=== PATIENT | male | born 1955 | race Caucasian/White ===

== ENCOUNTER 2019-01-20 10:39 | Emergency (ER) | payer MEDICARE, OTHER ==
[~2019-01-20] VITALS: Ht 177.8 cm; Wt 99.8 kg
[~2019-01-20 10:39] MED LIST: ATEN50; ATOR20; Advair Hfa 230-12 GM; Budeprion Xl300 MG; COLCHICINE0.6 MG; Doxycycline Hyc20 MG; LISI20; METF500; PRED10
== END 2019-01-20 13:17 | disposition home or self-care (01) ==
LOC: ER 10:39
DX: S61.211A Laceration without foreign body of left index finger without damage to nail, initial encounter (principal); I10 Essential (primary) hypertension; Z88.0 Allergy status to penicillin; Z79.899 Other long term (current) drug therapy; X58.XXXA Exposure to other specified factors, initial encounter
CPT/HCPCS: 12001; 73140; 90471; 90714; 99283-25

== ENCOUNTER 2019-02-09 12:50 | Day surgery (SDC) | payer MEDICARE, OTHER ==
[~2019-02-09] VITALS: Ht 177.8 cm; Wt 98.4 kg
== END 2019-02-09 14:57 | disposition home or self-care (01) ==
LOC: ORSCSDS 12:50
PROVIDERS: Internal Medicine Gastroenterology
PROC: 0DBM8ZX Excision of Descending Colon, Via Natural or Artificial Opening Endoscopic, Diagnostic (ICD-10-PCS; principal; 2019-02-09 14:15)
PROC: 0DBK8ZX Excision of Ascending Colon, Via Natural or Artificial Opening Endoscopic, Diagnostic (ICD-10-PCS; principal; 2019-02-09 14:15)
DX: Z12.11 Encounter for screening for malignant neoplasm of colon (principal); Z86.010 Personal history of colon polyps; D12.2 Benign neoplasm of ascending colon; D12.4 Benign neoplasm of descending colon; K64.8 Other hemorrhoids; I10 Essential (primary) hypertension; E11.9 Type 2 diabetes mellitus without complications; E66.9 Obesity, unspecified; Z68.32 Body mass index [BMI] 32.0-32.9, adult; Z79.84 Long term (current) use of oral hypoglycemic drugs; Z79.899 Other long term (current) drug therapy
CPT/HCPCS: 82947; 88305; J2704; J7120

== ENCOUNTER 2020-05-17 15:17 | Inpatient (IN) | payer MEDICARE, OTHER ==
[~2020-05-17] VITALS: Ht 180.3 cm; Wt 90.5 kg
[2020-05-17 15:49] LABS: BASOPHILS ABSOLUTE AUTO 0.02 K/mm3 (0.00-0.23); BASOPHILS PERCENT AUTO 0 % (0-2); EOSINOPHILS PERCENT AUTO 0 % (0-6); Hematocrit 38.1 % (37.0-53.0); Hemoglobin 12.9 g/dL (13.5-17.5); IMMATURE GRAN ABSOLUTE AUTO 0.09 K/mm3 (0.00-0.10); IMMATURE GRAN PERCENT AUTO 1 % (0-1); LYMPHOCYTES PERCENT AUTO 5 % (21-46); MONOCYTES ABSOLUTE AUTO 1.03 K/mm3 (0.16-1.47); MONOCYTES PERCENT AUTO 6 % (4-13); Mean Corpuscular HGB 31.5 pg (26.0-34.0); Mean Corpuscular HGB Conc 33.9 g/dL (31.5-36.5); Mean Corpuscular Volume 93 fL (80-100); Mean Platelet Volume 11.2 fL (9.1-12.4); NEUTROPHILS ABSOLUTE AUTO 14.63 K/mm3 (1.96-9.15); NEUTROPHILS PERCENT AUTO 88 % (41-73); Platelet Count 285 K/mm3 (150-400); RDW Coefficient Variation 12.8 % (11.7-14.2); RDW Standard Deviation 43.1 fL (35.1-46.3); White Blood Cell Count 16.57 K/mm3 (4.00-11.30)
[2020-05-17 15:51] LABS: Source, Urine Voided
[2020-05-17 16:05] LABS: Ethanol (Alcohol), Blood, Med <3 mg/dL
[2020-05-17 16:08] LABS: Appearance, Urine Clear (Clear); Bilirubin, Urine Neg (Neg); Blood, Urine 4+ (Neg); Color, Urine Yellow (P-Yellow); Glucose Qualitative, Urine 4+ (Neg); Ketones, Urine 3+ (Neg); Leukocyte Esterase, Urine Neg (Neg); Nitrite, Urine Neg (Neg); Protein, Urine 2+ (Neg); Urobilinogen, Urine NORM (Normal)
[2020-05-17 16:20] LABS: U Amphetamine Screen Not Detected; U Barbituate Screen Not Detected; U Benzodiazapine Screen Not Detected; U Buprenorphine Screen Not Detected; U Cannabinoids Screen Not Detected; U Cocaine Screen Not Detected; U Methadone Screen Not Detected; U Methamphetamine Screen Not Detected; U Opiates Screen Not Detected; U Oxycodone Screen Not Detected; U Phencyclidine Screen Not Detected; U Propoxyphene Screen Not Detected
[2020-05-17 16:26] LABS: International Normalized Ratio 1.02; Prothrombin Time Results 10.9 Sec (9.7-11.5)
[2020-05-17 16:29] LABS: Bacteria Few /hpf; Granular Casts 0-2 /lpf (0); Hyaline Casts 0-2 /lpf (0-2); Squamous Epithelial Cells Few /hpf (Few); White Blood Cells, Urine 0-2 /hpf (0-5)
[2020-05-17 16:46] LABS: Alanine Aminotransfer (ALT/SGP 39 U/L (12-78); Albumin, Blood 3.6 g/dL (3.4-5.0); Albumin/Globulin Ratio 0.9 (0.8-1.8); Alk Phos 164 U/L (50-136); Anion Gap 28 mmol/L (6-16); Aspartate Aminotrans (AST/SGOT 20 U/L (12-37); Bilirubin, Total 0.9 mg/dL (0.1-1.0); Blood Urea Nitrogen 79 mg/dL (8-24); Bun/Creatinine Ratio 41.4 (12.0-20.0); CO2, Blood 10 mmol/L (21-32); Chloride, Blood 81 mmol/L (98-108); Creatinine, Blood 1.91 mg/dL (0.60-1.20); Globulin, Blood 3.8 g/dL (2.2-4.0); Glomerular Filtration Rate 38 (60-); Glucose, Blood 1027 mg/dL (70-99); Potassium, Blood 5.9 mmol/L (3.5-5.5); Sodium, Blood 119 mmol/L (136-145); Total Protein, Blood 7.4 g/dL (6.4-8.2)
[2020-05-17] MEDS ORDERED: FOSAMAX70 MG PO (17:57)
[2020-05-17] MEDS ORDERED: BUDESONIDE PO (17:57)
[2020-05-17] MEDS ORDERED: ATEN100 PO (17:58)
[2020-05-17] MEDS ORDERED: ALLOPURINOL100 M1 PO (17:58)
[2020-05-17] MEDS ORDERED: METFORMIN HCL500 M3 PO (17:58)
[2020-05-17] MEDS ORDERED: LIPITOR80 MG PO (17:59)
[2020-05-17] MEDS ORDERED: BUPROPION XL150 M1 PO (17:59)
[2020-05-17] MEDS ORDERED: MONT10T PO (17:59)
--- NOTE | 2020-05-17 20:30 | NUR ---
ADMISSION NOTE RECEIVED HAND OFF FROM Rony LAURENT RN USING SBAR. TRANSPORTED TO ROOM ICU 14 VIA STRETCHER. TRANSFERED TO BED WITH FULL STAFF ASSISTANCE, TOLERATED WELL. ORIENTED TO SELF ONLY, ATTEMPTED TO ORIENT TO ROOM, CALL SYSTEM, AND POC, PT UNABLE TO COMPREHEND. WILL RENINFORCE NEEDED THROUGHT SHIFT. ER STATED THAT THEY HAD SPOKEN TO HIS WHO IS A PT ON MEDICAL FLOOR AND THAT SHE HAD GIVEN THEM HIS PAST MEDICAL HISTORY AND VERIFIED HIS MEDICATIONS. RESTING WITH EYES CLOSED OFF AND ON, WILL WAKE SUDDENLY LOOKING STARTLED. RESPIRATIONS EVEN AND UNLABORED ON ROOM AIR. LUNG SOUNDS CLEAR BILATERALLY. ABDOMEN SOFT AND NONDISTEND. BOWEL SOUNDS PRESENT IN ALL QUADS. CONTINENT OF BOWEL AND BLADDER, ABLE TO USE URINAL WITH ASSISTANCE. CBG'S IN PROGRESS WITH INSULIN GTT AT 10.9UNITS/HR STARTED IN ER. ALSO INFUSING NS WO, WILL START NS AT 200ML/HR PER MD ORDERS TO LEFT WRIST 20G PIV. RIGHT AC SL PIV IS FLUSHING WITH EASE. ADMISSION ASSESSMENT IN PROGRESS. SAFETY MEASURES IN PLACE. WILL CONTINUE TO MONITOR.
[2020-05-17 21:02] LABS: Bun/Creatinine Ratio 45.4 (12.0-20.0); Calcium, Blood 8.3 mg/dL (8.5-10.1); Creatinine, Blood 1.63 mg/dL (0.60-1.20); Potassium, Blood 4.5 mmol/L (3.5-5.5)
--- NOTE | 2020-05-17 21:12 | NUR ---
CALL RECEIVED FROM RUTH PT'S WHO IS ALSO CURRENTLY A PT IN THE HOSPITAL. UPDATE GIVEN ON CURRENT CONDITION AND CHANGES NOTED. VOICES UNDERSTANDING. REQUESTED THAT SHE RECEIVE A CALL IF PT HAS ANY CHANGES, NURSING VERIFIED TELEPHONE NUMBER AND REASSURED HER THAT A CALL WOULD BE PLACED. SAFETY MEASURES IN PLACE. WILL CONTINUE TO MONITOR.
--- NOTE | 2020-05-18 | NUR ---
EMILY VEST AND BILATERAL SOFT WRIST RESTRAINTS PLACED DUE TO IMPULSITIVITY, ATTEMPTING TO GET OOB, PULLING ON LINES AND IV'S, INTURRPUTION OF TREATMENT AND CARE. SAFETY MEASURES IN PLACE. WILL CONTINUE TO MONITOR.
[2020-05-18 01:29] LABS: Bun/Creatinine Ratio 48.5 (12.0-20.0); Calcium, Blood 7.9 mg/dL (8.5-10.1); Creatinine, Blood 1.32 mg/dL (0.60-1.20); Potassium, Blood 4.3 mmol/L (3.5-5.5)
--- NOTE | 2020-05-18 01:30 | NUR ---
PEREZ CATH PLACED PER MD ORDER DUE TO URINARY RETENTION USING STERILE TECHNIQUE. CONCENTRATE YELLOW URINE WITH A STRONG ODOR NOTED, SAMPLE SENT TO LAB. SAFETY MEASURES IN PLACE. WILL CONTINUE TO MONITOR.
[2020-05-18 01:41] LABS: Source, Urine Catheter
[2020-05-18 01:45] LABS: Bilirubin, Urine Neg (Neg); Blood, Urine 5+ (Neg); Glucose Qualitative, Urine 4+ (Neg); Ketones, Urine 4+ (Neg); Leukocyte Esterase, Urine Neg (Neg); Nitrite, Urine Neg (Neg); Protein, Urine 2+ (Neg); Urobilinogen, Urine NORM (Normal)
[2020-05-18 01:50] LABS: Appearance, Urine Hazy (Clear); Color, Urine Yellow (P-Yellow)
[2020-05-18 01:51] LABS: Amorphous Light (0-Heavy); Bacteria Rare /hpf; Granular Casts 0-2 /lpf (0); Squamous Epithelial Cells Rare /hpf (Few); White Blood Cells, Urine 0-2 /hpf (0-5)
--- NOTE | 2020-05-18 04:15 | NUR ---
SPOKE TO PT'S AND UPDATED HER ON HIS STATUS. SHE STATED THAT HIS BASELINE WAS WITHOUT TREMORS AND CONFUSION. STATED THAT HSE WANTED TO COME AND SEE HIM. SHE ASKED ABOUT VISITATION POLICY. NURSING STATED THAT IT WOULD BE VERIFIED WITH CHARGE NURSE AND SHE WOULD BE ADVISED. CALL PLACED TO Tyrel SANTOS RN AND HE WAS UPDATED ON THE SITUATION. HE STATED THAT HE WOULD INFORME HER OF FINDINGS AND MAKE SURE ARRANGEMENT WERE MADE. SAFETY MEASURES IN PLACE. WILL CONTINUE TO MONITOR.
--- NOTE | 2020-05-18 05:44 | NUR ---
SHIFT SUMMARY LYING SEMI FOWLERS WITH EYES CLOSED. HE IS CONFUSED AND VERY IMPULSIVE. CBG'S CONTINUE, BGL HAD REMAINED OVER 200. REMAINS IN 4 POINT SOFT RESTRAINTS AND EMILY VEST DUE TO CONFUSION, IMPULSIVENESS, AND TRYING TO REMOVE IV'S AND TREATMENTS. SAFETY MEASURES IN PLACE. WILL CONTINUE TO MONITOR AND GIVE HAND OFF TO ONCOMING SHIFT USING SBAR.
[2020-05-18 06:03] LABS: BASOPHILS ABSOLUTE AUTO 0.01 K/mm3 (0.00-0.23); BASOPHILS PERCENT AUTO 0 % (0-2); EOSINOPHILS ABSOLUTE AUTO 0.02 K/mm3 (0.00-0.68); EOSINOPHILS PERCENT AUTO 0 % (0-6); Hematocrit 27.8 % (37.0-53.0); Hemoglobin 9.8 g/dL (13.5-17.5); IMMATURE GRAN ABSOLUTE AUTO 0.02 K/mm3 (0.00-0.10); IMMATURE GRAN PERCENT AUTO 0 % (0-1); LYMPHOCYTES ABSOLUTE AUTO 0.76 K/mm3 (0.84-5.20); LYMPHOCYTES PERCENT AUTO 9 % (21-46); MONOCYTES PERCENT AUTO 9 % (4-13); Mean Corpuscular HGB Conc 35.3 g/dL (31.5-36.5); Mean Platelet Volume 10.1 fL (9.1-12.4); NEUTROPHILS ABSOLUTE AUTO 6.86 K/mm3 (1.96-9.15); NEUTROPHILS PERCENT AUTO 81 % (41-73); Platelet Count 191 K/mm3 (150-400); RDW Coefficient Variation 12.5 % (11.7-14.2); RDW Standard Deviation 40.1 fL (35.1-46.3); Red Blood Cell Count 3.16 M/mm3 (4.30-5.90); White Blood Cell Count 8.47 K/mm3 (4.00-11.30)
[2020-05-18 06:04] LABS: Mean Corpuscular Volume 88 fL (80-100)
[2020-05-18 06:20] LABS: Anion Gap 11 mmol/L (6-16); Blood Urea Nitrogen 59 mg/dL (8-24); Bun/Creatinine Ratio 53.2 (12.0-20.0); CO2, Blood 20 mmol/L (21-32); Calcium, Blood 7.8 mg/dL (8.5-10.1); Chloride, Blood 112 mmol/L (98-108); Creatinine, Blood 1.11 mg/dL (0.60-1.20); Glomerular Filtration Rate >60 (60-); Glucose, Blood 217 mg/dL (70-99); Potassium, Blood 3.9 mmol/L (3.5-5.5); Sodium, Blood 143 mmol/L (136-145)
--- NOTE | 2020-05-18 10:14 | NUR ---
[place] of Care: Care assumed at 0700hr. Patient sleeping, but easily roused to verbal stimuli. Follows simple commands (i.e. assisted with turns), but otherwise confused and unable to follow directions. Responds to his name, but only occasionally says "yeah", or laughs when asked questions. Appears calm and comfortable while sleeping, but frequently wakes and becomes restless. Soft wrist to extremities x4, and doris vest in place. When awake, patient continually attempts to pull at lines, tubes, cords, and climb out of bed. Unable to re-direct patient. At approx 0930hr, patient able to get left hand free from restraint and pulled out his root catheter. Small amount of conrad blood noted to attends, but not actively bleeding. Will continue to monitor void status, and bladder scan if indicated, will avoid replacing root cath in concern for causing further trauma to urethra. Call placed to Dr. Aguilar and informed him of patient's behaviors and removal of root cath. Received order for Haldol IV prn, x1 dose given, will monitor for effect. VSS, spO2 96% on RA.
[2020-05-18 12:41] LABS: Anion Gap 11 mmol/L (6-16); Blood Urea Nitrogen 48 mg/dL (8-24); Bun/Creatinine Ratio 45.7 (12.0-20.0); CO2, Blood 18 mmol/L (21-32); Calcium, Blood 7.7 mg/dL (8.5-10.1); Chloride, Blood 111 mmol/L (98-108); Creatinine, Blood 1.05 mg/dL (0.60-1.20); Glomerular Filtration Rate >60 (60-); Glucose, Blood 313 mg/dL (70-99); Potassium, Blood 4.1 mmol/L (3.5-5.5); Sodium, Blood 140 mmol/L (136-145)
--- NOTE | 2020-05-18 18:00 | NUR ---
SHIFT SUMMARY T/O MORNING AND MID-DAY PT CONTINUES TO BE RESTLESS/AGITATED. PULLING ON LINES/TUBES/CORDS. PT PULLED OUT RIGHT AC IV AND PEREZ CATH. PRECEDEX STARTED PER DR. WRIGHT (RESIDENT). PRECEDEX TITRATED TO 0.7 TO PROTECT LINES/TUBES/CORDS. PT IS SEDATED USING PRECEDEX 0.7 MCG/KG/HR (ORDER RECEIVED FROM DR. WRIGHT TO TITRATE UP TO 1 MCG/KG/HR, IF NEEDED). INSULIN AT 5 UNITS/HR. PTS CBG HAS BEEN BETWEEN 212-317, INSULIN TITERED PER PROTOCOL. PT IS ABLE TO STATE HIS NAME, , NAME, FOLLOW SIMPLE COMMANDS BUT CONTINUES TO BE DISORIENTED TO FURTHER QUESTIONS. PT HAS BEEN PULLING AT LINES/TUBES/CORDS T/O SHIFT AND ABLE TO REMOVE ARMS FROM SOFT RESTRAINTS. TOUGH CUFFS PLACED TO PROTECT PT FROM LINES/TUBES/CORDS AND INJURY. POWERGLIDE PLACE TO RIGHT UPPER ARM AFTER PT PULLED RIGHT AC IV. PT PULLED PEREZ OUT EARLIER IN THE MORNING, SMALL TO MOD BLOOD DRAINAGE FROM SITE. DR. WRIGHT (RESIDENT) MADE AWARE OF THIS, RECEIVED ORDER TO HOLD HEPARIN. PT BLADDER SCANNED AND 369 MLS OF URINE, X 2 HEAVY INCONTINENCE VOIDS IN THE AFTERNOON. INSTRUCTED BY DR. WRIGHT TO NOT REINSERT PEREZ CATH. PTS UPDATED ON PTS CONDITION. ALL QUESTIONS ANSWERED. WILL REPORT TO ONCOMING SHIFT.
[2020-05-18 18:37] LABS: Anion Gap 10 mmol/L (6-16); Blood Urea Nitrogen 38 mg/dL (8-24); Bun/Creatinine Ratio 38.1 (12.0-20.0); CO2, Blood 22 mmol/L (21-32); Calcium, Blood 7.6 mg/dL (8.5-10.1); Chloride, Blood 117 mmol/L (98-108); Glomerular Filtration Rate >60 (60-); Glucose, Blood 200 mg/dL (70-99); Potassium, Blood 3.7 mmol/L (3.5-5.5); Sodium, Blood 149 mmol/L (136-145)
[2020-05-18 18:48] LABS: Hematocrit 25.1 % (37.0-53.0); Hemoglobin 8.7 g/dL (13.5-17.5)
--- NOTE | 2020-05-18 19:15 | NUR ---
ASSUMED CARE OF PT, BEDSIDE REPORT RECEIVED. PT IS ALERT ON ARRIVAL TO ROOM DOES RESPOND TO SPOKEN NAME WITH "YEAH" HOWEVER STATES THAT HE DOESN'T KNOW WHEN ASKED TO STATE HIS NAME, STATES THAT HE DOESN'T KNOW WHEN ASKED HIS BIRTHDATE AT THIS TIME, IS ABLE TO STATE THAT HIS 'S NAME IS RUTH WELL TO ANSWER THAT WHILE HE ISN'T HAVING ANY PAIN AT THIS TIME, HE IS FEELING COLD, ROOM TEMP INCREASED AND WARM BLANKETS PROVIDED. SOFT RESTRAINTS ARE NOTED TO BILAT ANKLES AND LOCKED RESTRAINTS ARE NOTED TO BILAT WRISTS AT THIS TIME, PT DOES REACH FOR MONITORING WIRES WELL IV TUBING WHEN RESTRAINTS ARE INTERUPTED FOR REPOSITIONING AND BOOSTING IN BED, PT STATES THAT HE IS UNAWARE OF DOING THIS WHEN THE BEHAVIOUR IS POINTED OUT TO HIM AND ALSO STATES TO PUT THE RESTRAINTS BACK ON HE DOESN'T WANT CAUSE HIMSELF INJURY "OH, NO, NO, I DON'T WANT TO DO THAT, BETTER PUT THOSE BACK ON" ORDERS RECEIVED TO DECREASE D5 1/2 NS TO 150 ML/HR DURING REPORT WHICH IS DONE WELL DECREASING INSULIN GTT FROM 4 UNITS/HR TO 3.5 UNITS/HR LAST CBG WAS 200 PER OFFGOING RN. WILL MONITOR.
--- NOTE | 2020-05-18 21:58 | NUR ---
ORIENTATION PT IS NOW ABLE TO STATE THAT HE IS IN THE HOSPITAL, BELIEVES YEAR TO BE 2019, CONT TO REACH FOR IV LINES/MONITORING CABLES, WILL CONT TO MONITOR.
[2020-05-19 00:45] LABS: Anion Gap 5 mmol/L (6-16); Blood Urea Nitrogen 31 mg/dL (8-24); Bun/Creatinine Ratio 35.6 (12.0-20.0); CO2, Blood 24 mmol/L (21-32); Calcium, Blood 7.3 mg/dL (8.5-10.1); Chloride, Blood 115 mmol/L (98-108); Creatinine, Blood 0.87 mg/dL (0.60-1.20); Glomerular Filtration Rate >60 (60-); Glucose, Blood 234 mg/dL (70-99); Potassium, Blood 3.5 mmol/L (3.5-5.5); Sodium, Blood 144 mmol/L (136-145)
--- NOTE | 2020-05-19 02:00 | NUR ---
RESTLESSNESS PT WIDE AWAKE AND RESTLESS IN BED, REMOVES BEDDING AND CARDIAC MONITORING ELECTRODES IMMEDIATELY AFTER REPLACEMENT, KICKING FEET AGAINST ANKLE RESTRAINTS, MOVES WHOLE BODY CLOSER TO BOTH RIGHT AND LEFT SIDES OF BED TO BRING HANDS WITHIN REACH OF ELECTRODES ON TORSO IN ORDER TO PICK PATCHES OFF, STATES "OH, OK" WHEN INSTRUCTED TO NOT REMOVE MONITORING EQUIPMENT HOWEVER CONTINUES TO REMOVE PATCHES THROUGHOUT ATTEMPTS TO REPLACE. PRECEDEX GTT INCREASED, SEE ICU FLOWSHEET.
--- NOTE | 2020-05-19 03:50 | NUR ---
IV TUBING PT IS NOTED RESTLESS, ON ARRIVAL TO ROOM HE IS NOTED TO HAVE INSULIN IV TUBING BROKEN NEAR ACCESS HUB. THERE IS BLOOD NOTED TO SHEET AND SMALL AMOUNT NOTED ON FLOOR, TESTING ENGINEER NOTIFIED, AM LABS DRAWN, IV TUBING CHANGED. IV TO RIGHT AC CONTINUES TO FLUSH WELL, SITE WNL. WILL MONITOR
[2020-05-19 04:25] LABS: BASOPHILS PERCENT AUTO 0 % (0-2); EOSINOPHILS ABSOLUTE AUTO 0.02 K/mm3 (0.00-0.68); EOSINOPHILS PERCENT AUTO 1 % (0-6); Hematocrit 25.6 % (37.0-53.0); Hemoglobin 8.8 g/dL (13.5-17.5); IMMATURE GRAN ABSOLUTE AUTO 0.01 K/mm3 (0.00-0.10); IMMATURE GRAN PERCENT AUTO 0 % (0-1); LYMPHOCYTES ABSOLUTE AUTO 0.56 K/mm3 (0.84-5.20); LYMPHOCYTES PERCENT AUTO 15 % (21-46); MONOCYTES ABSOLUTE AUTO 0.41 K/mm3 (0.16-1.47); MONOCYTES PERCENT AUTO 11 % (4-13); Mean Corpuscular HGB 31.1 pg (26.0-34.0); Mean Corpuscular HGB Conc 34.4 g/dL (31.5-36.5); Mean Corpuscular Volume 91 fL (80-100); Mean Platelet Volume 10.4 fL (9.1-12.4); NEUTROPHILS PERCENT AUTO 74 % (41-73); Platelet Count 137 K/mm3 (150-400); RDW Standard Deviation 42.5 fL (35.1-46.3); Red Blood Cell Count 2.83 M/mm3 (4.30-5.90)
[2020-05-19 04:39] LABS: Anion Gap 7 mmol/L (6-16); Blood Urea Nitrogen 28 mg/dL (8-24); Bun/Creatinine Ratio 32.4 (12.0-20.0); CO2, Blood 23 mmol/L (21-32); Calcium, Blood 7.6 mg/dL (8.5-10.1); Chloride, Blood 115 mmol/L (98-108); Creatinine, Blood 0.86 mg/dL (0.60-1.20); Glomerular Filtration Rate >60 (60-); Glucose, Blood 203 mg/dL (70-99); Potassium, Blood 3.8 mmol/L (3.5-5.5); Sodium, Blood 145 mmol/L (136-145)
--- NOTE | 2020-05-19 05:43 | NUR ---
PT AWAKE FREQUENTLY THROUGHOUT SHIFT, IS NOTED RESTLESS WHEN AWAKE, PT REPORTS THAT HE NORMALLY SLEEPS PRONE HOWEVER PER SPOUSE RUTH THIS AM PT SLEEPS ON HIS SIDE AND SOMETIMES ON HIS BACK. SATS MAINTAIN THROUGHOUT NOC, RARE DRY COUGH THIS SHIFT, LUNGS REMAIN CLEAR, NO VISIBLE INCREASED WORK OF BREATHING IS NOTED THIS SHIFT. CONTINUES IN SINUS RHYTHM, RATE HIGH 60 LOW 70S WITH SLEEP, 90-100S WITH PERIODS OF WAKEFULNESS. HE IS ABLE TO STATE THAT HE IS IN THE HOSPITAL INTERMITTENTLY THROUGHOUT SHIFT IS UNABLE TO STATE CURRENT PRESIDENT, CITY, OR DATE THROUGHOUT NOC. IS ABLE TO INQUIRE REGARDING HIS RUTH. HE DOES CONTINUE TO REMOVE MONITORING EQUIPMENT AND PULL AT IV LINES. INCONT OF URINE, BLEEDING FROM URETHRA IS SCANT AT THIS TIME.
--- NOTE | 2020-05-19 10:33 | NUR ---
CARE ASSUMED PT CURRENTLY ORIENTED TO SELF ONLY. PT APPEARS TO BE VERY DROWSY, FALLS ASLEEP DURING QUESTIONS, AND RESTLESS IN BED. PRECEDEX ON 0.9 MCG/KG/HR DURING SHIFT ASSUMPTION. PRECEDEX DECREASED TO 0.5 MCG/KG/HR. PT CONTINUES TO BE DROWSY, UNABLE TO GIVE MEANINGFUL RESPONSES. INSULIN @ 4.5. PT CONTINUES TO BE NPO DUE TO ASPIRATION RISK. RECTAL TEMP PROBE HAS BEEN PLACED DUE TO PT FEELING WARM, CURRENT TEMP OF 103.1. DR. SILVA CALLED AND UPDATED REGARDING FEVER, TACHYCARDIA, TACHYPNEA. INQUIRED PROVIDER ABOUT STARTING ANTIBIOTIC, PROVIDER STATES HE WILL CONSIDER IT. RECEIVED ORDERS FOR STAT BLOOD CULTURES. ICE PACKS TO UNDERARMS, GROIN, NECK, COOL WASH CLOTH TO FOREHEAD, FAN PLACED, SHEET REMOVED, AND MT TYLENOL. CONDOM CATH PLACED.
--- NOTE | 2020-05-19 12:41 | NUR ---
PT INCONTINENT OF EXLARGE LIQUID STOOL. PT CLEANED, LINEN CHANGED. BP TRENDING DOWN WITH SBP 80-90'S DESPITE DECREASING PRECEDEX TO 0.3MCG. WITH DECREASE IN PRECEDEX PT VERY AGITATED AND RESTLESS. PULLING ON ALL LEADS, LINES DESPITE WRIST RESTRAINTS. HEART RATE 120-130'S. RESP RATE 30'S. INSULIN GTT AT 4UNITS/HR. TEMP IS DOWN TO 101.7 AFTER ICE PACKS AND TYLENOL OH. DR SILVA CALLED AND GIVEN COMPLETE UPDATE. 500CC NS BOLUS ORDERED.
--- NOTE | 2020-05-19 19:15 | NUR ---
ASSUMED CARE OF PT, BEDSIDE REPORT RECEIVED. PT IS RESTING QUIETLY ON RIGHT SIDE IN BED AND APPEARS TO BE SLEEPING THROUGHOUT BEDSIDE REPORT, HE DOES ROUSE EASILY TO STATED NAME HOWEVER IS UNABLE TO STATE HIS LOCATION AT THIS TIME, HE IS ABLE TO STATE HIS NAME. RESP RATE LOW 20S, LUNGS CLEAR THROUGHOUT, NO VISIBLE INCREASED WORK OF BREATHING, SATS MAINTAINING ON ROOM AIR. HRR, SINUS TACH ON MONITOR, RARE PVC IS NOTED, PRESSURES MAINTAINING, SKIN PWD, BRISK CAP REFILL, NO EDEMA IS NOTED. ABD MILDLY DISTENDED, ACTIVE BOWEL TONES X 4, SOFT, NO GRIMACING OR GUARDING WITH PALPATION, ATTENDS NOTED IN PLACE, DAY SHIFT REPORTS EXTRA LARGE LOOSE BOWEL MOVEMENT THIS AFTERNOON. PT HAS CONTINUED INCONT OF URINE TODAY, ATTENDS IS CLEAN AND DRY AT THIS TIME, BLEEDING FROM URETHRA IS RESOLVED AT THIS TIME. IV ACCESS CONTINUES TO LEFT AC AND RIGHT UPPER ARM, INSULIN INFUSING AT 3 UNITS/HR, D51/2NS INFUSING AT 150 ML/HR, AND PRECEDEX INFUSING AT 0.9 MCG/KG/HR. WILL MONITOR.
--- NOTE | 2020-05-19 19:34 | NUR ---
SHIFT SUMMARY PT RESTING IN BED. BP WITH MAP > 65, HR 100-120'S, AND TEMP 101.3. PRECEDEX TO 0.9 MCG, INFUSING VIA RIGHT UPPER ARM POWERGLIDE. PT CONTINUES TO BE CONFUSED BUT HAD A MOMENT OF CLARITY AT 1700 AND WAS ABLE TO SPEAK TO ON PH ( UPDATED ON PT, ALL QUESTIONS ANSWERED) FOR A MOMENT PT WAS ABLE TO ANSWER QUESTIONS, STATES HE REMEMBERS PASSING OUT AT HOME AND WAS AFRAID HE WOULD . PT STATES HE MISSES HIS AND LOVES HER. HE WAS NOT ABLE TO STATE DATE, YEAR, OR THE CURRENT PRESENT. TATS REMOVED AT THIS TIME AND SOFT MITTS PLACED DUE TO RESDIUAL CONFUSION. PT HAD ONE LARGE AND SMALL BM T/O SHIFT. PULLING AT LINES/CORDS/TUBES AND REMOVING ATTENDS WHILE IN RESTRAINTS T/O SHIFT. LUNG SOUNDS CLEAR T/O SHIFT, PT REMAINS ON RA, SPO2 > 95%. INSULIN AT 3 UNITS WITH CBG RAMINING 150-200'S T/O. MEROPENEM STARTED PER DR. HOUGH. 1 L OF BLOUS GIVEN TOTAL.
[2020-05-20 03:05] LABS: Hematocrit 26.4 % (37.0-53.0); Hemoglobin 8.7 g/dL (13.5-17.5); Mean Corpuscular HGB 30.7 pg (26.0-34.0); Mean Corpuscular Volume 93 fL (80-100); Mean Platelet Volume 10.2 fL (9.1-12.4); Platelet Count 118 K/mm3 (150-400); RDW Coefficient Variation 13.2 % (11.7-14.2); RDW Standard Deviation 44.6 fL (35.1-46.3); Red Blood Cell Count 2.83 M/mm3 (4.30-5.90); White Blood Cell Count 1.93 K/mm3 (4.00-11.30)
[2020-05-20 03:20] LABS: Anion Gap 8 mmol/L (6-16); Blood Urea Nitrogen 18 mg/dL (8-24); Bun/Creatinine Ratio 18.8 (12.0-20.0); CO2, Blood 22 mmol/L (21-32); Calcium, Blood 6.9 mg/dL (8.5-10.1); Chloride, Blood 118 mmol/L (98-108); Creatinine, Blood 0.96 mg/dL (0.60-1.20); Glomerular Filtration Rate >60 (60-); Glucose, Blood 213 mg/dL (70-99); Potassium, Blood 3.1 mmol/L (3.5-5.5); Sodium, Blood 148 mmol/L (136-145)
[2020-05-20 03:34] LABS: BAND PERCENT MAN 32 % (0-8); BASOPHILS ABSOLUTE MAN 0.03 K/mm3 (0.00-0.23); BASOPHILS PERCENT MAN 2 % (0-2); EOSINOPHILS ABSOLUTE MAN 0.07 K/mm3 (0.00-0.68); EOSINOPHILS PERCENT MAN 4 % (0-6); LYMPHOCYTES ABSOLUTE MAN 0.15 K/mm3 (0.84-5.20); LYMPHOCYTES PERCENT MAN 8 % (21-46); METAMYELOCYTE ABSOLUTE MAN 0.03 K/mm3 (0.00-0.00); METAMYELOCYTE PERCENT MAN 2 % (0-0); MONOCYTES ABSOLUTE MAN 0.34 K/mm3 (0.16-1.47); MONOCYTES PERCENT MAN 18 % (4-13); MYELOCYTE ABSOLUTE MAN 0.03 K/mm3 (0.00-0.00); MYELOCYTE PERCENT MAN 2 % (0-0); NEUTROPHILS ABSOLUTE MAN 1.23 K/mm3 (1.96-9.15); SEG NEUTROPHILS PERCENT MAN 32 % (41-73); TOTAL CELLS COUNTED 50
[2020-05-20 05:29] LABS: Campylobacter Sp Not Detected (NOT DETECT)
[2020-05-20 05:30] LABS: Adenovirus F 40/41 Not Detected (NOT DETECT); Astrovirus Not Detected (NOT DETECT); Cryptosporidium Not Detected (NOT DETECT); Cyclospora Cayetanensis Not Detected (NOT DETECT); E. Coli O157 Not Detected (NOT DETECT); Entamoeba Histolytica Not Detected (NOT DETECT); Enteroaggregative E. coli-EAEC Not Detected (NOT DETECT); Enteropathogenic E. coli-EPEC Not Detected (NOT DETECT); Enterotoxigenic E. coli-ETEC Not Detected (NOT DETECT); Giardia Lamblia Not Detected (NOT DETECT); Norovirus GI/GII Not Detected (NOT DETECT); Plesiomonas Shigelloides Not Detected (NOT DETECT); Rotavirus A Not Detected (NOT DETECT); Salmonella Sp Not Detected (NOT DETECT); Sapovirus Not Detected (NOT DETECT); Shiga Toxin-prod E. coli-STEC Not Detected (NOT DETECT); Shigella/Enteroin E. coli-EIEC Not Detected (NOT DETECT); Vibrio Cholerae Not Detected (NOT DETECT); Vibrio Sp Not Detected (NOT DETECT); Yersinia Enterocolitica Not Detected (NOT DETECT)
--- NOTE | 2020-05-20 06:36 | NUR ---
PT FREQUENTLY RESTLESS THROUGHOUT SHIFT, RUBBING MITT RESTRAINTS AGAINST STUDIO OPERATOR ELECTRODES, IV SITES, AND BP CUFF, FREQUENTLY REMOVES ELECTRODES AND SPO2 PROBE, DOES NOT REDIRECT WELL, UNABLE TO STATE LOCATION, DATE, TIME, OR CIRCUMSTANCE HOWEVER DOES REMAIN ORIENTED TO NAME AND SPOUSE. FEBRILE THROUGHOUT SHIFT, TYLENOL CA ADMIN WITH MINIMAL IMPROVEMENT, ICE PACKS, AND FAN APPLIED, DISCUSSED WITH DR RICKS AND ORDER RECEIVED FOR TORADOL IV, TEMP IS NOTED IMPROVED AFTER TORADOL ADMINISTRATION. HYPOTENSIVE THIS AM, DISCUSSED WITH DR RICKS, NS 500 ML BOLUS ADMIN WITH IMPROVEMENT NOTED, PRECEDEX GTT TITRATED DOWN TO STANDBY AND PRESSURES IMPROVED, PT TACHYCARDIC TO 130-140S WITH PERIODS OF AGITATION, DISCUSSED WITH DR RICKS, IMPROVES TO 100S WITH DECREASE IN TEMP AND AGITATION. LUNGS REMAIN CLEAR THROUGHOUT NOC, SATS CONTINUE TO MAINTAIN ON ROOM AIR. NEW MURMUR IS NOTED AT MIDNOC ASSESSMENT, THIS WAS ALSO DISCUSSED WITH DR RICKS AND ECHO IS ORDERED FOR THIS AM. LABS AND BLOOD CULTURES DISCUSSED WITH DR RICKS, POTASSIUM CHLORIDE, CALCIUM GLUCONATE, D5W, AND VANCOMYCIN ORDERED.
--- NOTE | 2020-05-20 09:00 | NUR ---
AM NOTE... ASSUMED CARE OF PT APROX 0700, PT IS A&Ox3 WITH STILL SOME CONFUSION AND RESTLESSNESS, PT IS ABLE TO STATE FULL NAME, AND THAT WE ARE IN [place]. PT HAS MITT HAND RESTRAINTS IN PLACE TO PREVENT PULLING ANY LINES/CORDS. PT IS ON INSULIN GTT RUNNING AT 3UNITS/HR, PRECEDEX IS ON STAND BY, D5 RUNNING AT 150MLS/HR. PT'S VS STABLE BUT BP HAS BEEN ON THE SOFT SIDE WITH SBPS 90'S-110'S. PT'S TEMP WAS 100.3. HR SINUS TACH 130'S. PT IS ON RA WITH O2 SATS>92%. L/S EXP WHEEZES HEARD T/O. NO EDEMA NOTED ON ASSESSMENT. WILL CONTINUE TO MONITOR.
--- NOTE | 2020-05-20 13:13 | NUR ---
PT UPDATE... PT'S CONFUSION HAS GREATLY CLEARED, PT IS A&Ox4, CALM AND COOPERATIVE WITH CARE AND DIRECTIONS. PT PASSED RN BEDSIDE SWALLOW EVALUATION, PROVIDER NOTIFIED AND A SOFT ADA DIET WAS ORDERED. PT IS CURRENTLY ON 0.1MCG OF PRECEDEX. PT'S HR HAS DECREASED TO THE 110'S-120'S. PT'S TEMP INCREASED TO 101.3 BUT HAS DECREASED BACK TO 100.6. PT WAS ABLE TO SPEAK WITH HIS ON THE PHONE. PT ATE 75% OF HIS LUNCH, INSULIN GTT RUNNING AT 5UNITS/HR. CALL LIGHT IN REACH WILL CONTINUE TO MONITOR.
--- NOTE | 2020-05-20 17:39 | NUR ---
SHIFT SUMMARY... NO ACUTE NEGATIVE CHANGES NOTED THIS SHIFT. PT'S VS HAVE BEEN STABLE BP HAS IMPROVE T/O SHIFT AND TEMP IS DOWN TO 99.1. PT CONTINUES TO BE A&Ox4 PRECEDEX WAS PUT ON STANDBY AT 1330. RESTRAINTS HAVE BEEN OFF SINCE 1000. PT HAS NOT VOIDED SINCE THIS AM, BLADDER SCAN DONE AND SHOWED 494MLS, PROVIDER CALLED AND ORDERS OBTAINED TO BLADDER SCAN Q6 AND PRN AND STRAIGHT CATH WHEN >300MLS. PT CONTINUES TO HAVE LIQUID INCONT STOOLS. PT HAS BEEN TOLERATING PO INTAKE WELL. CALL LIGHT IN REACH WILL CONTINUE TO MONITOR UNTIL REPORT IS GIVEN TO ONCOMING RN.
--- NOTE | 2020-05-20 19:34 | NUR ---
ASSUMED CARE OF PT, BEDSIDE REPORT RECEIVED. PT IS RESTING QUIETLY RECLINING IN BED AND WATCHING TV, CALL LIGHT AND PHONE WITHIN REACH. PT IS ABLE TO STATE THAT HE IS IN THE [facility] IN THE YEAR 2019, HE STATES THAT HE IS HERE "BECAUSE OF SOMETHING I SHOULD HAVE TAKEN CARE OF BUT DIDN'T BECAUSE OF ALL OF THIS COVID SCARE AND STUFF" STATES THAT HE WAS NOT TAKING INSULIN "OR ANYTHING" HE INQUIRES REGARDING PLAN OF CARE FOR THIS SHIFT WHICH IS DISCUSSED WITH HIM. HE DENIES PAIN, DENIES CP/PRESSURE, DENIES SOB/DYSPNEA, DENIES N/V, DENIES NUMBNESS/TINGLING. HE IS SPEAKING IN FULL SENTENCES WITHOUT VISIBLE INCREASED WORK OF BREATHING, SATS ARE MAINTAINING HIGH 90S ON ROOM AIR, LUNGS ARE CLEAR WITH DIM BASES BILAT, RATE HIGH TEENS. HRR, SINUS TACH ON MONITOR, RATE 110-120S, PRESSURES MAINTAINING STABLE, SKIN PWD, BRISK CAP REFILL, NO EDEMA IS NOTED. ACTIVE BOWEL TONES X 4, ABD MILDLY DISTENDED, SOFT, NONTENDER TO PALP, PT STATES IS FINISHED WITH BEDPAN AT THIS TIME, LIQUID BROWN GREEN STOOL, ATTENDS REMAINS IN PLACE, RECTAL TEMP PROBE REMAINS IN PLACE. PT WILL NOTIFY IF NEEDS URINAL OR BEDPAN, DISCUSSED POSIBILITY OF BLADDER SCAN AND IN AND OUT CATH IF UNABLE TO VOID, PT VERB UNDERSTANDING. IV ACCESS CONTINUES EXTENDED DWELL TO RIGHT UPPER ARM, DRESSING CDI, INSULIN GTT CONTINUES INFUSING, PLAN TO DC AT 1999, CURRENT CBG 122, INSULIN DECREASED TO 2 UNITS/HR FROM 4 UNITS/HR, D5W INFUSING AT 150 ML/HR. SALINE LOCK IN PLACE TO LEFT AC, DRESSING CDI, SITE WNL.
[2020-05-21 05:06] LABS: Hematocrit 26.5 % (37.0-53.0); Hemoglobin 8.8 g/dL (13.5-17.5); Mean Corpuscular HGB 31.3 pg (26.0-34.0); Mean Corpuscular HGB Conc 33.2 g/dL (31.5-36.5); Mean Corpuscular Volume 94 fL (80-100); Mean Platelet Volume 10.5 fL (9.1-12.4); NRBC ABSOLUTE 0.03 K/mm3 (0.00-0.02); NRBC Auto 0.4 /100 WBC (0.0-0.2); Platelet Count 165 K/mm3 (150-400); RDW Coefficient Variation 13.3 % (11.7-14.2); RDW Standard Deviation 46.3 fL (35.1-46.3); Red Blood Cell Count 2.81 M/mm3 (4.30-5.90); White Blood Cell Count 6.97 K/mm3 (4.00-11.30)
[2020-05-21 05:25] LABS: Bun/Creatinine Ratio 18.5 (12.0-20.0); Calcium, Blood 7.3 mg/dL (8.5-10.1); Creatinine, Blood 1.3 mg/dL (0.60-1.20)
[2020-05-21 05:38] LABS: BAND PERCENT MAN 7 % (0-8); BASOPHILS PERCENT MAN 0 % (0-2); EOSINOPHILS PERCENT MAN 0 % (0-6); LYMPHOCYTES ABSOLUTE MAN 1.11 K/mm3 (0.84-5.20); LYMPHOCYTES PERCENT MAN 16 % (21-46); MONOCYTES ABSOLUTE MAN 0.97 K/mm3 (0.16-1.47); MONOCYTES PERCENT MAN 14 % (4-13); MYELOCYTE ABSOLUTE MAN 0.06 K/mm3 (0.00-0.00); MYELOCYTE PERCENT MAN 1 % (0-0); SEG NEUTROPHILS PERCENT MAN 62 % (41-73); TOTAL CELLS COUNTED 100
--- NOTE | 2020-05-21 07:49 | NUR ---
PT RESTS QUIETLY THROUGHOUT SHIFT, IS USING CALL LIGHT WELL TO MAKE NEEDS KNOWN, REMAINS ORIENTED THROUGHOUT SHIFT, TOLERATING PO, VITALS REMAIN STABLE, TEMP IMPROVED WITHOUT TYLENOL OR TORADOL ADMINISTRATION. BM FREQUENCY IMPROVED. PT WAS ABLE TO VOID THIS AM USING URINAL. TRANSFERRED TO [facility] WITH TELE AT MIDNOC PER ORDERS.
--- NOTE | 2020-05-21 09:54 | NUR ---
AM NOTE... ASSUMED CARE OF PT APROX 0700, PT IS A&Ox4. PT IS ABLE TO USE THE BEDPAN FOR BMS THIS IS AN IMPROVEMENT FROM YESTERDAY. PT'S VS STABLE AT THIS TIME, HR IN THE 70'S-80'S, BP STABLE, PT'S TEMP IS 98.8. RR 18-20 EVEN AND UNLABORED ON RA WITH O2 SATS>90%. PT WAS SBA UP TO RECLINER CHAIR FOR BREAKFAST AND TO [facility] TO HAVE BMS. L/S CLEAR T/O ON RA. NO EDEMA NOTED ON ASSESSMENT. CALL LIGHT IN REACH WILL CONTINUE TO MONITOR.
--- NOTE | 2020-05-21 17:00 | NUR ---
TRANSFER FROM ICU TO MEDICAL/SHIFT SUMMARY PT AxOx4 ARRIVING VIA AT APPROX 1700. PT ORIENTED TO THE ROOM. NO FAMILY AT BEDSIDE. PT PLEASANT AND COOPERATIVE WITH CARE. INDEPENDENT AND CONTINENT OF BLADDER/BOWEL. STILL HAVING WATERY STOOLS. PT ON CONTACT PRECAUTIONS FOR +C DIFF. PER ICU NURSE, PT HAS SOME HX OF RETENTION. OFFERED PT URINAL, BUT DENIES URGE. WILL PLAN TO BLADDER SCAN IF UNSUCCESSFUL SOON. PER TIN STACKER, CHRISTOPH, SINUS RHYTHM 64. PT REQUESTING FOOD. DINNER TRAYS ARRIVED SHORTLY AFTER. AFTERNOON MEDS PASSED. VITALS REVIEWED. PT DENIES PAIN. NO CONCERNS AT THIS TIME. CALL LIGHT IN REACH.
--- NOTE | 2020-05-22 04:47 | NUR ---
TOOL AND DIE MANAGER SUMMARY PT HAD ONE INCONTINENT LOOSE BOWEL MOVEMENT AT THE START OF THE SHIFT. PT DENIED ANY C/P OR SOB DURING THE NIGHT. PT HAD NO NEW S/S AND SLEPT COMFORTABLY FOR MOST OF THE NIGHT.
[2020-05-22 05:09] LABS: Hemoglobin 9.7 g/dL (13.5-17.5); Mean Corpuscular HGB 31.1 pg (26.0-34.0); Mean Corpuscular HGB Conc 32.3 g/dL (31.5-36.5); Mean Corpuscular Volume 96 fL (80-100); Mean Platelet Volume 10.3 fL (9.1-12.4); Platelet Count 202 K/mm3 (150-400); RDW Coefficient Variation 13.6 % (11.7-14.2); RDW Standard Deviation 47.8 fL (35.1-46.3); Red Blood Cell Count 3.12 M/mm3 (4.30-5.90); White Blood Cell Count 7.07 K/mm3 (4.00-11.30)
[2020-05-22 05:36] LABS: Bun/Creatinine Ratio 21.5 (12.0-20.0); Creatinine, Blood 1.44 mg/dL (0.60-1.20); Potassium, Blood 3.2 mmol/L (3.5-5.5)
[2020-05-22 05:46] LABS: BAND PERCENT MAN 3 % (0-8); BASOPHILS PERCENT MAN 0 % (0-2); EOSINOPHILS PERCENT MAN 0 % (0-6); LYMPHOCYTES ABSOLUTE MAN 1.41 K/mm3 (0.84-5.20); LYMPHOCYTES PERCENT MAN 20 % (21-46); MONOCYTES ABSOLUTE MAN 0.77 K/mm3 (0.16-1.47); MONOCYTES PERCENT MAN 11 % (4-13); NEUTROPHILS ABSOLUTE MAN 4.87 K/mm3 (1.96-9.15); SEG NEUTROPHILS PERCENT MAN 66 % (41-73); TOTAL CELLS COUNTED 100
[2020-05-22 15:04] LABS: Bun/Creatinine Ratio 21.4 (12.0-20.0); Calcium, Blood 8.3 mg/dL (8.5-10.1); Creatinine, Blood 1.4 mg/dL (0.60-1.20); Potassium, Blood 3.3 mmol/L (3.5-5.5)
--- NOTE | 2020-05-22 18:31 | NUR ---
SHIFT SUMMARY PT AxOx4 WITH MILD INTERMITTENT CONFUSION. PHYSICAL THERAPY IN FOR EVAL TODAY, SBA. SOME CONCERNS ABOUT IMPAIRED VISION AND NOT BEING ABLE TO MANAGE INSULIN AFTER DISCHARGE. PHONE CONSULT WITH ROCK MASON TODAY. PER NIGHT MONITOR, SR 84. PT DENIES PAIN. TOLERATING IV ABX WELL. BG STABLE WITH INSULIN COVERAGE. ORAL POTASSIUM SUPPLEMENTS ORDERED FOR LOW POTASSIUM LEVEL. PLAN FOR DC TO SNF. VITALS REVIEWED. PT DENIES NEEDS AT THIS TIME. CALL LIGHT IN REACH.
--- NOTE | 2020-05-23 05:19 | NUR ---
NATURAL SCIENCES PROFESSOR SUMMARY NO ACUTE CHANGES THIS SHIFT. PT AAOX4 AND STANDBY ASSIST TO BATHROOM. HELD 2100 NPH INSULIN DUE TO CBG OF 90. PT DENIES PAIN, SOB, N/V. USING CPAP WHILE SLEEPING. VSS, WILL CONTINUE TO MONITOR.
[2020-05-23 05:59] LABS: Hematocrit 30.2 % (37.0-53.0); Hemoglobin 9.7 g/dL (13.5-17.5); Mean Corpuscular HGB 30.7 pg (26.0-34.0); Mean Corpuscular HGB Conc 32.1 g/dL (31.5-36.5); Mean Corpuscular Volume 96 fL (80-100); Mean Platelet Volume 9.7 fL (9.1-12.4); Platelet Count 245 K/mm3 (150-400); RDW Coefficient Variation 13.3 % (11.7-14.2); Red Blood Cell Count 3.16 M/mm3 (4.30-5.90); White Blood Cell Count 6.89 K/mm3 (4.00-11.30)
[2020-05-23 06:20] LABS: Bun/Creatinine Ratio 19.1 (12.0-20.0); Calcium, Blood 8.1 mg/dL (8.5-10.1); Creatinine, Blood 1.41 mg/dL (0.60-1.20); Potassium, Blood 3.3 mmol/L (3.5-5.5)
[2020-05-23 06:31] LABS: BASOPHILS PERCENT MAN 0 % (0-2); EOSINOPHILS ABSOLUTE MAN 0.34 K/mm3 (0.00-0.68); EOSINOPHILS PERCENT MAN 5 % (0-6); LYMPHOCYTES ABSOLUTE MAN 1.92 K/mm3 (0.84-5.20); LYMPHOCYTES PERCENT MAN 28 % (21-46); MONOCYTES ABSOLUTE MAN 0.68 K/mm3 (0.16-1.47); MONOCYTES PERCENT MAN 10 % (4-13); NEUTROPHILS ABSOLUTE MAN 3.92 K/mm3 (1.96-9.15); SEG NEUTROPHILS PERCENT MAN 57 % (41-73); TOTAL CELLS COUNTED 100
[2020-05-23 15:12] LABS: Bun/Creatinine Ratio 17.6 (12.0-20.0); Calcium, Blood 8.4 mg/dL (8.5-10.1); Creatinine, Blood 1.42 mg/dL (0.60-1.20); Potassium, Blood 3.3 mmol/L (3.5-5.5)
--- NOTE | 2020-05-23 18:14 | NUR ---
SHIFT SUMMARY PT AxOx4. PLEASANT AND COOPERATIVE WITH CARE. WORKED WITH PT TODAY. PT AMBULATING WELL WITH SBA. DR WRIGHT ORDERED ABX CHANGE, BLOOD CULTURES, AND ADJUSTED INSULIN ORDERS. 2 BM'S TODAY. PT STATES "THEY ARE MUCH MORE FORMED THAN BEFORE." TELE DC'D TODAY. PER WEIGHER AND GRADER: SR 73. POWERGLIDE DRESSING CHANGED TODAY. PLAN FOR SNF, POSSIBLY [facility] SO HE CAN BE WITH . VITALS REVIEWED. PT DENIES ANY NEEDS AT THIS TIME. CALL LIGHT IN REACH.
--- NOTE | 2020-05-23 19:40 | NUR ---
ASSUMED CARE. AOX3. INDPENDENT IN THE ROOM. LUNG SOUNDS CLEAR BUT DIMINISHED IN BASES, COUGH PRODUCTIVE WITH THICK SPUTUM. DENIES SOB, SATS >90%. ABDOMIN SOFT, NON-TENDER. REPORTS 3 BM TODAY ALL AT WHICH WERE SOFT PUDDING LIKE BROWN. BT VERY ACTIVE. DENIES ANY NAUSEA. GOOD APPETITE. NUMBNESS ON BOTTOM OF FEET. NO TINGLING OR PAIN. IV SL. DENIES ANY OTHER NEEDS AT THIS TIME. CALL LIGHT IN REACH.
--- NOTE | 2020-05-23 20:42 | NUR ---
FOUNTAIN OPERATOR REPORTS BLOOD SUGAR OF 54. PATIENT IS AWAKE, DENIES ANY SX OF HYPOGLYCEMIA. FOUNTAIN OPERATOR TO BRING SANDWICH WIHT CHEESE AND SOME OJ. WILL RECHECK IN 30MIN TO 1HR.
--- NOTE | 2020-05-23 21:23 | NUR ---
BLOOD SUGAR AT 79 PATIENT STILL EATING SANDWICH. WILL CHECK WITH MIDNIGHT MEDS.
--- NOTE | 2020-05-23 23:46 | NUR ---
BLOOD SUGAR IS UP TO 156, STATES HE FEELS FINE. WITHHELD LANTUS WOO.
--- NOTE | 2020-05-24 05:25 | NUR ---
SHIFT SUMMARY: AOX3, COOPERATIVE. VS WNL, AFEBRILE. BLOOD SUGAR WAS 54 BEFORE BEDTIME, LANTUS NOT GIVEN. GAVE SNACK BLOOD SUGAR CAME UP TO 79 AND AROUND MIDNIGHT TO 156. HE DENIED ANY HYPOGLYCEMIC SYMTPOMS. BRUISING NOTED SCATTERED ON BLE AND BUE. BOWEL MOVEMENTS IMPROVING SOFT BROWN STOOL, NO BM TONIGHT. URINE OUTPUT IS GOOD, BLADDER SCAN X1 ONLY SHOWED 156 IN BLADDER. DENIED ANY NEEDS OR WANTS THIS SHIFT. CALL LIGHT REMAINED IN REACH.
[2020-05-24 08:45] LABS: BASOPHILS ABSOLUTE AUTO 0.02 K/mm3 (0.00-0.23); BASOPHILS PERCENT AUTO 0 % (0-2); EOSINOPHILS ABSOLUTE AUTO 0.11 K/mm3 (0.00-0.68); EOSINOPHILS PERCENT AUTO 2 % (0-6); Hematocrit 29.1 % (37.0-53.0); Hemoglobin 9.4 g/dL (13.5-17.5); IMMATURE GRAN ABSOLUTE AUTO 0.07 K/mm3 (0.00-0.10); IMMATURE GRAN PERCENT AUTO 1 % (0-1); LYMPHOCYTES PERCENT AUTO 28 % (21-46); MONOCYTES ABSOLUTE AUTO 1.01 K/mm3 (0.16-1.47); MONOCYTES PERCENT AUTO 14 % (4-13); Mean Corpuscular HGB 30.6 pg (26.0-34.0); Mean Corpuscular HGB Conc 32.3 g/dL (31.5-36.5); Mean Corpuscular Volume 95 fL (80-100); Mean Platelet Volume 9.8 fL (9.1-12.4); NEUTROPHILS PERCENT AUTO 56 % (41-73); Platelet Count 270 K/mm3 (150-400); RDW Standard Deviation 44.8 fL (35.1-46.3); Red Blood Cell Count 3.07 M/mm3 (4.30-5.90); White Blood Cell Count 7.21 K/mm3 (4.00-11.30)
[2020-05-24 09:07] LABS: Bun/Creatinine Ratio 15.6 (12.0-20.0); Calcium, Blood 8.2 mg/dL (8.5-10.1); Creatinine, Blood 1.35 mg/dL (0.60-1.20); Potassium, Blood 3.5 mmol/L (3.5-5.5)
--- NOTE | 2020-05-24 18:41 | NUR ---
SHIFT SUMMARY PT A/O X3 AND IND IN THE ROOM. PT HAS BEEN GETTING UP AND VOIDING ON HIS OWN SO NOT BLADDER SCANNED TODAY. WORKED WITH P.T. AND O.T. BLOOD SUGAR 87 AT DINNER TIME SO 12 UNITS OF HUMALOG WAS NOT GIVEN. PT HAS A RED SPOT ON HIS R CALF THAT IS WARM TO THE TOUCH. R FOOT MORE SWOLLEN THAN THE L. WEARS A CPAP AT NIGHT. REFUSED TO WEAR PULSE BIOX TODAY. VSS. WILL CONTINUE TO MONITOR.
--- NOTE | 2020-05-24 20:21 | NUR ---
ASSUMED CARE. JILL REPORTS NO CHANGES TODAY OTHER THEN SWELLING IN HIS LEGS. STATES LAST TIME HE GOT POTASSIUM HIS ARMS SWELLED, TODAY AFTER GETTING IT HIS FEET SWELLED, AND ARE TENDER TO WALK ON. PULSES ARE FAINT DUE TO SWELLLING. TWO RED AREA WITH PROMINENT VEINS ON THE MEDIAL SIDE OF THE RIGHT ANKLE UNCHANGED FROM YESTERDAY. WARM TO TOUCH BUT SO IS REST OF HIS FOOT. LUNG SOUNDS ARE CLEAR AND DIMINISHED. BOWEL MOVEMENTS CONTINUE TO IMPROVE. NO PROBLEMS WITH URINATION. BLOOD SUGAR 160 LANTUS GIVEN. DENIES ANY OTHER NEEDS. CALL LIGHT WITH IN REACH.
--- NOTE | 2020-05-25 05:48 | NUR ---
SHIFT SUMMARY: AOX3, COOPERATIVE, INDEPENDENT. LUNG SOUNDS CLEAR, CONTINOUS BIOX WITH SATS IN THE 90'S, CPAP AT NIGHT. 1 STOOL THIS SHIFT, SOFT, BROWN. GOOD URINE OUTPUT. VS WNL, AFEBRILE. NO PAIN. SWELLING IN FEET AND HANDS NOTED. KEPT ELEVATED MUCH POSSIBLE. BLOOD SUGAR MID 100'S, LANTUS GIVEN LAST NIGHT AND RECHECK OF BP LATER IN THE NIGHT WAS ONLY 132. HE HOPES TO GO TO REHAB TODAY AND SEE HIS . NO OTHER CHANGES TO REPORT THIS SHIFT. CALL LIGHT IN REACH.
--- NOTE | 2020-05-25 16:37 | NUR ---
SHIFT SUMMARY PT A/O X3; PLEASANT AND COOPERATIVE. C/O NUMBNESS IN HIS FEET AND PAIN WHEN WALKING. FEET SWOLLEN AND ELEVATED. INITIAL MRSA NASAL SWAB CAME BACK NEGATIVE. POSSIBLE DC TO SNF TOMORROW. VSS, BLOOD SUGARS UNREMARKABLE. NOTIFIED PHYSICIAN OF REDNESS ON R CALF. WILL CONTINUE TO MONITOR.
--- NOTE | 2020-05-25 20:10 | NUR ---
ASSUMED CARE. JILL REPORTS PAIN IN HIS FEET WHILE HE WALKS. BLE HAVE INCREASE IN EDEMA, HE IS KEEPING THEM ELEVATED MOST OF THE TIME. HE TRIED TO PLACE HIS COMPRESSION STOCKINGS ON BUT THEY WERE TWO TIGHT. DISCUSSED GETTING HIM SOME NICKI HOSE THAT MIGHT WORK IN THE MEAN TIME. NUMBNESS ON BOTTOM OF FEET WELL. NO CHANGE IN REDNESS ON RIGHT ANKLE. LUNG SOUNDS STILL CLEAR, CPAP AT NIGHT. VS WNL, AFEBRILE. DENIES ANY NEEDS AT THIS TIME. CALL LIGHT IN REACH.
--- NOTE | 2020-05-26 05:11 | NUR ---
SHIFT SUMMARY: JILL HAD A GOOD NIGHT. SLEPT BETWEEN INTERVENTIONS. CPAP AND CONTINUOUS BIOX WHEN SLEEPING. SATS >90%. PAIN TO BILATERAL BOTTOM OF FEET WITH NUMBNESS. EDEMA INCREASE IN LEGS TO 2-3. NICKI HOSE PLACED ON PATIENT DUE TO HIS PERSON COMPRESSION SOCKS WERE TOO TIGHT. INDEPENDENT WITH WALKER IN ROOM. HOPES TO BE DISCHARGE TO [facility] TODAY. VS WNL. CALL LIGHT REMAINS IN REACH.
[2020-05-26 08:54] LABS: BASOPHILS ABSOLUTE AUTO 0.02 K/mm3 (0.00-0.23); BASOPHILS PERCENT AUTO 0 % (0-2); EOSINOPHILS ABSOLUTE AUTO 0.06 K/mm3 (0.00-0.68); EOSINOPHILS PERCENT AUTO 1 % (0-6); Hematocrit 27.2 % (37.0-53.0); Hemoglobin 8.8 g/dL (13.5-17.5); IMMATURE GRAN ABSOLUTE AUTO 0.04 K/mm3 (0.00-0.10); IMMATURE GRAN PERCENT AUTO 1 % (0-1); LYMPHOCYTES ABSOLUTE AUTO 1.53 K/mm3 (0.84-5.20); LYMPHOCYTES PERCENT AUTO 18 % (21-46); MONOCYTES ABSOLUTE AUTO 0.89 K/mm3 (0.16-1.47); MONOCYTES PERCENT AUTO 11 % (4-13); Mean Corpuscular HGB 31.2 pg (26.0-34.0); Mean Corpuscular HGB Conc 32.4 g/dL (31.5-36.5); Mean Corpuscular Volume 97 fL (80-100); Mean Platelet Volume 9.7 fL (9.1-12.4); NEUTROPHILS ABSOLUTE AUTO 5.77 K/mm3 (1.96-9.15); NEUTROPHILS PERCENT AUTO 70 % (41-73); Platelet Count 284 K/mm3 (150-400); RDW Coefficient Variation 12.9 % (11.7-14.2); RDW Standard Deviation 45.8 fL (35.1-46.3); Red Blood Cell Count 2.82 M/mm3 (4.30-5.90); White Blood Cell Count 8.31 K/mm3 (4.00-11.30)
[2020-05-26 09:09] LABS: Anion Gap 8 mmol/L (6-16); Blood Urea Nitrogen 15 mg/dL (8-24); Bun/Creatinine Ratio 12.1 (12.0-20.0); CO2, Blood 23 mmol/L (21-32); Calcium, Blood 8.4 mg/dL (8.5-10.1); Chloride, Blood 114 mmol/L (98-108); Creatinine, Blood 1.24 mg/dL (0.60-1.20); Glomerular Filtration Rate >60 (60-); Glucose, Blood 142 mg/dL (70-99); Potassium, Blood 3.2 mmol/L (3.5-5.5); Sodium, Blood 145 mmol/L (136-145)
--- NOTE | 2020-05-26 18:23 | NUR ---
SHIFT SUMMARY PT AWAKE AT START OF SHIFT, WATCHING TV. PT REPORTED THAT HE WAS INDEPENDENT IN RM IF USING THE FWW. PT UP TO BTHRM NEEDED ON HIS OWN. MAGDA AND CO-OP. DR JUAN M WRIGHT HERE TO SEE PT. NO NEW ORDERS RECEIVED. PT TO POSSIBLY D/C TO IF CX'S REMAIN CLEAR. PT IN CONTACT ISO FOR C-DIFF. REPORTS STOOL BECOMING FORMED. CBG'S MOSTLY WNL'S; SEE CHART. PT WANTING TO GO TO AT D/C, IS THERE NOW. PT DID REPORT SOME SWELLING IN BLE'S D/T WHAT HE BELIEVED WAS IV KCL HE HAD RECEIVED RECENTLY. NICKI HOSE IN PLACE. PT REPORTED SWELLING DECREASING NOW. PT ABLE TO WORK WITH P/T TODAY. IV ABX ADMIN PER EMAR. CALL LT IN REACH. DENIED FURTHER NEEDS.
--- NOTE | 2020-05-26 22:43 | NUR ---
PT RESTING COMFORTABLY IN BED; CHEERFUL; CONTACT ISOLATION MAINTAINED.
--- NOTE | 2020-05-26 23:09 | NUR ---
2250 PT ADMITTED TO ROOM 339 PER CART FROM ER; REPORT RECEIVED FROM LAURA GONZALEZ VIA ER; BED ALARM APPLIED; PT ALERT AND ORIENTED X 2.
--- NOTE | 2020-05-27 04:21 | NUR ---
SHIFT SUMMARY: 64 Y/O OBESE MALE RESTED COMFORTABLY ALL SHIFT WHILE WEARING BIPAP; DENIES PAIN OR NAUSEA; PENDING POSSIBLE DISCHARGE TODAY TO [facility]; ALERT AND ORIENTED X 4; BED LOW POSITION WITH CALL LIGHT AT SIDE.
--- NOTE | 2020-05-27 17:41 | NUR ---
PATIENT IS ALERT AND ORIENTED AND COOPERATIVE WITH CARE. DR. CONNER ASSESSED THE PATIENT THIS MORNING AND DECIDED TO NOT DISCHARGE TODAY BECAUSE THE ERYTHEMA ON HIS RLE APPEARS TO BE WORSE THAN YESTERDAY. PICTURES WERE TAKEN OF SAID ERYTHEMA AND PLACED ON THE CHART. PATIENT IS INDEPENDENT IN THE ROOM. VS ARE WNL. WILL CONTINUE TO MONITOR
--- NOTE | 2020-05-28 04:06 | NUR ---
TILE SHADER SUMMARY ALERT AND ORIENTED. SBA TO BATHROOM. APPEARED TO SLEEP T/O NIGHT. VSS. BREATHING IS UNLABORED. NO ACUTE CHANGES AT THIS TIME. BED IN LOWEST POSITON WITH CALL LIGHT IN REACH. WILL CONTINUE TO MONITOR AND REPORT TO ONCOMING RN.
[2020-05-28] MEDS ORDERED: CEFAZOLIN2 GM/50 M3 IV (13:18)
[2020-05-28] MEDS ORDERED: BASAGLAR K100 UNIT/1 SC (13:20)
[2020-05-28] MEDS ORDERED: HUMALOG KW100 UNIT/1 SC ×2 (13:21→13:22)
[2020-05-28] MEDS ORDERED: VANCOCIN HCL125 MG PO (13:25)
[2020-05-28] MEDS ORDERED: VISBIOME PO (13:26)
--- NOTE | 2020-05-28 14:19 | NUR ---
PT DCD TO [facility]. REPORT WAS CALLED TO FLOR FRAIRE. PT PACKED HIS BELONGINGS AND IS AWAITING TRANSPORT.
== END 2020-05-28 14:37 | DRG 637 ==
LOC: ER 15:17 → ICUW 18:01 → EOR 18:01 → ICUW 19:51 → MEDS 05-21 16:46 → ENPENDDIS 05-28 12:48 → MEDS 05-28 14:37
PROVIDERS: Emergency Medicine; Internal Medicine; Student in an Organized Health Care Education/Training Program; ADMIT Hospitalist
DX: E11.10 Type 2 diabetes mellitus with ketoacidosis without coma (principal); G92 Toxic encephalopathy; A41.01 Sepsis due to Methicillin susceptible Staphylococcus aureus; R65.20 Severe sepsis without septic shock; E87.1 Hypo-osmolality and hyponatremia; N17.9 Acute kidney failure, unspecified; E87.2 Acidosis; A04.72 Enterocolitis due to Clostridium difficile, not specified as recurrent; Z98.52 Vasectomy status; Z87.891 Personal history of nicotine dependence; M81.0 Age-related osteoporosis without current pathological fracture; M10.9 Gout, unspecified; I10 Essential (primary) hypertension; E87.5 Hyperkalemia; E87.6 Hypokalemia; Z79.84 Long term (current) use of oral hypoglycemic drugs; Z78.1 Physical restraint status
CPT/HCPCS: 0097U; 36415; 51702; 70450; 71045; 71046; 80048; 80053; 81001; 82550; 82947; 83036; 84484; 85014; 85018; 85025; 85610; 87040; 87077; 87147; 87186; 87324; 93005; 93010; 93306; 94660; 94762; 96360; 96372-59; 97110; 97112; 97116; 97129; 97130; 97162; 97166; 97530; 97535; 99285-25; A9270; A9270-GY; C9113; G0008; G0480; J0610; J0690; J1630; J1644; J1815; J1885; J2185; J3370; J3480; J7030; J7040; J7042; J7050; J7070; Q2038; U0003

== ENCOUNTER → 2021-02-15 | Outpatient (CLI) | payer MEDICARE, OTHER ==
[~2021-02-15] MED LIST changes: +ALLOPURINOL100 M1 PO; +ATEN100 PO; +BASAGLAR K100 UNIT/1 SC; +BUDESONIDE PO; +BUPROPION XL150 M1 PO; +CEFAZOLIN2 GM/50 M3 IV; +FOSAMAX70 MG PO; +HUMALOG KW100 UNIT/1 SC; +LIPITOR80 MG PO; +METFORMIN HCL500 M3 PO; +MONT10T PO; +VANCOCIN HCL125 MG PO; +VISBIOME PO
== END | disposition home or self-care (01) ==
LOC: LAB 16:06 → LAB SHORT 16:06
DX: N39.0 Urinary tract infection, site not specified (principal)
CPT/HCPCS: 87077; 87086; 87186

== ENCOUNTER → 2021-09-19 | Outpatient (CLI) | payer MEDICARE, OTHER | LOC: LAB SHORT 09:00 | DX: R30.0 Dysuria (principal) | CPT/HCPCS: 87086 ==

== ENCOUNTER 2022-12-15 11:35 | Day surgery (SDC) | payer MEDICARE, OTHER ==
[~2022-12-15] VITALS: Ht 180.3 cm; Wt 92.0 kg
[2022-12-15] MEDS ORDERED: LISI5 (11:51)
[2022-12-15 13:06] VITALS: BP 100/68
--- NOTE | 2022-12-15 13:11 | NUR ---
12/15/22 1311 Dawn Shaw FROM [facility] FOR IGA AND TGA - SENT TO LAB. IV DC'D CATH INTACT, PRESSURE DRESSING APPLIED. PT TOLERATED WELL
== END 2022-12-15 13:09 | disposition home or self-care (01) ==
LOC: ORSCSDS 11:35
PROVIDERS: Internal Medicine Gastroenterology
PROC: 0DBE8ZX Excision of Large Intestine, Via Natural or Artificial Opening Endoscopic, Diagnostic (ICD-10-PCS; principal; 2022-12-15 13:30)
PROC: 0DBB8ZX Excision of Ileum, Via Natural or Artificial Opening Endoscopic, Diagnostic (ICD-10-PCS; principal; 2022-12-15 13:30)
DX: Z12.11 Encounter for screening for malignant neoplasm of colon (principal); K52.831 Collagenous colitis; Z86.010 Personal history of colon polyps; G47.33 Obstructive sleep apnea (adult) (pediatric); E11.9 Type 2 diabetes mellitus without complications; Z79.899 Other long term (current) drug therapy
CPT/HCPCS: 82784; 82947; 86364; 88305; J0330; J0461; J2001; J2405; J2704; J7120; Q9968